=== PATIENT | male | born 1950 | race African-American/Black ===

== ENCOUNTER 2018-01-01 22:51 | Emergency (ER) | payer MEDICAID ==
[~2018-01-01] VITALS: Ht 185.4 cm; Wt 104.0 kg
[2018-01-02] MEDS ORDERED: SODIUM CHLORIDE 0.9% 1,000 ML IV ONE (03:06)
[2018-01-02 03:34] LABS: CHLORIDE 106 mEq/L (98-107)
[2018-01-02 03:39] LABS: BASOPHILS % 0.7 % (0.0-2.0); EOSINOPHILS % 1.1 % (0.0-5.0); HEMOGLOBIN. 13.3 g/dL (14.0-18.0); LYMPHOCYTES % 30.5 % (20.0-50.0); MEAN CORPUSCULAR HEMOGLOBIN 30.9 pg (28.0-32.0); MEAN CORPUSCULAR VOLUME 92.7 fL (80.0-94.0); MEAN PLATELET VOLUME 7.9 fl (7.4-10.4); MONOCYTES % 8.3 % (2.0-8.0); NEUTROPHILS % 59.4 % (40.0-76.0); PLATELET 217 x1000/uL (130-400); RED BLOOD CELL COUNT 4.31 mill/uL (4.7-6.1); RED CELL DISTRIBUTION WIDTH 13.6 % (11.6-14.6)
[2018-01-02 03:45] LABS: INR 1.1; PROTHROMBIN TIME 10.9 sec (9.4-11.6)
[2018-01-02 05:26] VITALS: BP 140/76
== END 2018-01-02 05:28 | disposition home or self-care (01) ==
LOC: ER 22:51
DX: K62.5 Hemorrhage of anus and rectum (principal); R53.1 Weakness; R42 Dizziness and giddiness; I10 Essential (primary) hypertension; Z79.82 Long term (current) use of aspirin
CPT/HCPCS: 36415; 71045; 80053; 83605; 85025; 85610; 85730; 86850; 86900; 86901; 96360; 99291; J7030; Z7610

== ENCOUNTER 2018-01-11 00:39 | Emergency (ER) | payer MEDICAID ==
[~2018-01-11] VITALS: Ht 185.4 cm; Wt 106.0 kg
[2018-01-11] MEDS ORDERED: FAMOTIDINE 20MG/2ML VIAL IV STA (01:38)
[2018-01-11 02:11] LABS: BASOPHILS % 0.7 % (0.0-2.0); EOSINOPHILS % 1.2 % (0.0-5.0); HEMATOCRIT. 35.7 % (42.0-52.0); HEMOGLOBIN. 11.9 g/dL (14.0-18.0); LYMPHOCYTES % 28.9 % (20.0-50.0); MEAN CORPUSCULAR HEMOGLOBIN 30.9 pg (28.0-32.0); MEAN CORPUSCULAR VOLUME 92.3 fL (80.0-94.0); MEAN PLATELET VOLUME 7.3 fl (7.4-10.4); MONOCYTES % 7.3 % (2.0-8.0); NEUTROPHILS % 61.9 % (40.0-76.0); PLATELET 232 x1000/uL (130-400); RED BLOOD CELL COUNT 3.87 mill/uL (4.7-6.1); RED CELL DISTRIBUTION WIDTH 13.3 % (11.6-14.6)
[2018-01-11 02:33] LABS: CHLORIDE 111 mEq/L (98-107)
[2018-01-11 02:34] LABS: PROTHROMBIN TIME 10.6 sec (9.4-11.6)
[2018-01-11 03:58] VITALS: BP 122/76
== END 2018-01-11 04:17 | disposition home or self-care (01) ==
LOC: ER 00:39 → CANBEDREQ 06:01
DX: K92.1 Melena (principal); M54.9 Dorsalgia, unspecified; I10 Essential (primary) hypertension
CPT/HCPCS: 36415; 80053; 83690; 85025; 85610; 86850; 86900; 86901; 96374; 99284; J3490; Z7610

== ENCOUNTER 2018-11-17 18:29 | Emergency (ER) | payer MEDICAID ==
[~2018-11-17] VITALS: Ht 185.4 cm; Wt 104.0 kg
[2018-11-17 21:15] VITALS: BP 148/75
[2018-11-17] MEDS ORDERED: LIDOCAINE HCL/PF 1% 10 MG/ML 5ML VIAL IJ ONE (21:15)
[2018-11-17] MEDS ORDERED: BACITRACIN ZINC OINT UDPKT TOP ONE (21:15)
== END 2018-11-18 03:41 | disposition home or self-care (01) ==
LOC: ER 18:29
DX: L02.212 Cutaneous abscess of back [any part, except buttock and flank] (principal); I10 Essential (primary) hypertension
CPT/HCPCS: 10060; 99282; 99283

== ENCOUNTER 2025-01-11 21:09 | Emergency (ER) | payer MEDICAID, MEDICARE ==
[~2025-01-11] VITALS: Ht 185.4 cm; Wt 104.0 kg
[2025-01-11 21:14] VITALS: O2SAT 97
[2025-01-11 21:19] VITALS: BP 165/91; PULSE 75; RESP 18; TEMP 36.6; O2SAT 97
[2025-01-11 22:02] LABS: CLARITY URINE CLEAR (CLEAR); COLOR URINE YELLOW (YELLOW); GLUCOSE URINE NEGATIVE (NEGATIVE); KETONES URINE NEGATIVE (NEGATIVE); LEUKOCYTE ESTERASE URINE NEGATIVE (NEGATIVE); NITRITE URINE NEGATIVE (NEGATIVE); OCCULT BLOOD URINE NEGATIVE (NEGATIVE); PH URINE 7.5 (4.5-8.0); PROTEIN URINE NEGATIVE (NEGATIVE); SPECIFIC GRAVITY URINE 1.015 (1.005-1.030); UROBILINOGEN URINE 0.2 E.U./dL (0.2-1.0)
[2025-01-11 22:05] VITALS: TEMP 98.1
[2025-01-11] MEDS: ACETAMINOPHEN 500MG TABLET PO ONE (22:05)
[2025-01-11] MEDS: ONDANSETRON HCL 4MG TABLET PO ONE (22:06)
[2025-01-11 22:34] LABS: BASOPHILS % 0.3 % (0.0-2.0); EOSINOPHILS % 0.6 % (0.0-5.0); HEMATOCRIT. 41.7 % (42.0-52.0); HEMOGLOBIN. 13.5 g/dL (14.0-18.0); LYMPHOCYTES % 21.3 % (20.0-50.0); MEAN CORPUSCULAR HEMOGLOBIN 29.8 pg (28.0-32.0); MEAN CORPUSCULAR HGB CONC 32.5 g/dL (31.0-37.0); MEAN CORPUSCULAR VOLUME 91.8 fL (80.0-94.0); MEAN PLATELET VOLUME 8.1 fl (7.4-10.4); MONOCYTES % 6.1 % (2.0-8.0); NEUTROPHILS % 71.7 % (40.0-76.0); PLATELET 253 x1000/uL (130-400); RED BLOOD CELL COUNT 4.54 mill/uL (4.7-6.1); RED CELL DISTRIBUTION WIDTH 13.7 % (11.6-14.6); WHITE BLOOD COUNT 9.9 x1000/uL (4.5-11.0)
[2025-01-11 22:37] LABS: CHLORIDE 101 mEq/L (98-107); POTASSIUM 3.5 mEq/L (3.5-5.1); SODIUM 139 mEq/L (136-145)
[2025-01-11 22:38] LABS: CALCIUM 9.4 mg/dL (8.7-10.4); CARBON DIOXIDE 31 mEq/L (21-32)
[2025-01-11 22:43] LABS: GLUCOSE 144 mg/dL (70-105); UREA NITROGEN BLOOD 12 mg/dL (9-23)
[2025-01-11 22:50] LABS: ALANINE AMINOTRANSFERASE 24 IU/L (10-49); ALBUMIN 4.5 g/dL (3.2-4.8); ASPARTATE AMINOTRANSFERASE 24 IU/L (<34); BILIRUBIN DIRECT 0.2 mg/dL (<=3.0); BILIRUBIN TOTAL 0.5 mg/dL (0.1-1.0); PROTEIN TOTAL 7.3 g/dL (6.0-8.3)
[2025-01-11 23:27] LABS: TROPONIN I HIGH SENSITIVITY 10 ng/L (3.0-53)
[2025-01-12] MEDS ORDERED: ROSU40TA PO (13:00)
[2025-01-12] MEDS ORDERED: HYDR12.54 PO (13:00)
[2025-01-12] MEDS ORDERED: AMLO10TA80 PO (13:00)
[2025-01-12] MEDS ORDERED: ASPI-1079 PO (13:00)
== END 2025-01-12 01:30 | disposition left against medical advice (07) ==
LOC: ER 21:09
DX: K56.609 Unspecified intestinal obstruction, unspecified as to partial versus complete obstruction (principal); E78.00 Pure hypercholesterolemia, unspecified; D64.9 Anemia, unspecified; I10 Essential (primary) hypertension; Z79.899 Other long term (current) drug therapy
CPT/HCPCS: 99284; 74176; 80076; 80048; 81003; 83690; 85025; 84484; 36415; 93005; Q0162